=== PATIENT | male | born 1970 | race Caucasian/White ===

== ENCOUNTER 2022-06-29 05:47 | Day surgery (SDC) | payer OTHER ==
[2022-06-21 14:07] VITALS: BMI 31.5
[2022-06-29] MEDS ORDERED: Lidocaine Viscous Sol 2% 15 ml UD Cup ONE (07:29)
[2022-06-29] MEDS ORDERED: PROPOFOL 40 ML ONE (07:29)
== END 2022-06-29 08:30 | disposition home or self-care (01) ==
LOC: CSHSDC 05:47
PROVIDERS: ATTEND Internal Medicine Gastroenterology
PROC: 0DB68ZX Excision of Stomach, Via Natural or Artificial Opening Endoscopic, Diagnostic (ICD-10-PCS; principal; 2022-06-29)
DX: K74.60 Unspecified cirrhosis of liver (principal); I85.10 Secondary esophageal varices without bleeding; E78.5 Hyperlipidemia, unspecified; K31.7 Polyp of stomach and duodenum; E11.9 Type 2 diabetes mellitus without complications; F41.9 Anxiety disorder, unspecified; Z79.899 Other long term (current) drug therapy; Z90.49 Acquired absence of other specified parts of digestive tract; Z91.018 Allergy to other foods
CPT/HCPCS: J2704

== ENCOUNTER 2023-01-13 12:24 | Observation (INO) | payer OTHER ==
[2023-01-13] MEDS ORDERED: Lorazepam 2 MG/ML VIAL ONE (13:38)
[2023-01-13 13:40] LABS: #Basophils 0.1 10x3/uL (0.0-0.2); #Eosinphils 0.1 10x3/uL (0.0-0.5); #Monocytes 0.4 10x3/uL (0.0-1.1); #Neutrophils 3.8 10x3/uL (1.5-8.4); %Eosinophils 2.1 % (0.0-6.0); %Lymphocytes 27.7 % (18.0-47.0); %Monocytes 7.1 % (0.0-10.0); %Neutrophils 61.9 % (40.0-75.0); Hematocrit 44.9 % (38.8-50.0); Hemoglobin 15.8 g/dL (13.5-17.5); Mean Corpuscular HGB CONC 35.2 g/dL (32.0-36.0); Mean Corpuscular Hemoglobin 31.4 pg (27.0-33.0); Mean Corpuscular Volume 89.3 fl (81.2-95.1); Mean Platelet Volume 9.9 fl (7.4-10.4); Platelet Count 129 10x3/uL (150-450); RBC Distribution Width 14.9 % (11.5-14.5); Red Blood Cell (RBC) Count 5.03 10x6/uL (4.32-5.72); White Blood Cell (WBC) Count 6.2 10x3/uL (3.5-10.5)
[2023-01-13] MEDS ORDERED: Lidocaine 2% Viscous Solution 10 ML, Aluminum & Magnesium Hydroxide 30 ML SSW SCH (13:45)
[2023-01-13 13:58] LABS: ALT (SGPT) 25 U/L (8-55); AST (SGOT) 47 U/L (5-34); Albumin 4.5 g/dL (3.5-5.0); Alkaline Phosphatase 97 U/L (40-110); Anion Gap 17 mmol/L (10-20); BUN (Urea Nitrogen) 8 mg/dL (8.9-20.6); Bilirubin, Total 1.3 mg/dL (0.2-1.2); Calc. Creatinine Clearance 0 mL/min (70-130); Calcium 8.8 mg/dL (7.8-10.44); Carbon Dioxide 23 mmol/L (22-29); Chloride 101 mmol/L (98-107); Estimated GFR 90; Globulin 3.4 g/dL (2.4-3.5); Glucose 190 mg/dL (70-105); Lipase 39 U/L (8-78); Potassium 3.4 mmol/L (3.5-5.1); Protein, Total 7.9 g/dL (6.0-8.3); Sodium 138 mmol/L (136-145)
[2023-01-13 14:04] LABS: Troponin I Less than 0.010 ng/mL (< 0.028)
[2023-01-13] MEDS ORDERED: Morphine 4 MG/ML VIAL ONE (15:03)
[2023-01-13 18:37] VITALS: BMI 35.2
[2023-01-13] MEDS ORDERED: Morphine 4 MG/ML VIAL SLOW IVP PRN (18:41)
[2023-01-13] MEDS ORDERED: Hydrocodone-Acetamin 15 ML UDCUP PO PRN (18:47)
[2023-01-13] MEDS ORDERED: Lorazepam 2 MG/ML VIAL SLOW IVP PRN (19:00)
[2023-01-13] MEDS ORDERED: Ondansetron ODT 4 MG TAB PO PRN (19:01)
[2023-01-13] MEDS ORDERED: Electrolyte Replacement Protocol 1 EACH FS SCH (19:15)
[2023-01-13] MEDS ORDERED: Glucagon 1 MG/ML KIT IM PRN (19:16)
[2023-01-13] MEDS ORDERED: Dextrose 50% Abboject 50 ML SYRINGE SLOW IVP PRN (19:16)
[2023-01-13] MEDS ORDERED: HumaLOG 300 UNITS/3 ML VIAL SC PRN (19:16)
[2023-01-13] MEDS ORDERED: Dextrose 5% in Water 1,000 ML IV PRN (19:16)
[2023-01-13 19:50] LABS: Troponin I Less than 0.010 ng/mL (< 0.028)
[2023-01-13] MEDS: Lorazepam 1 MG TAB PO PRN (19:55)
[2023-01-13] MEDS ORDERED: Thiamine HCl 200 MG/2 ML VIAL SLOW IVP SCH (20:00)
[2023-01-13] MEDS ORDERED: Folic Acid 1 MG TAB PO SCH (20:00)
[2023-01-13] MEDS ORDERED: Clopidogrel Bisulfate 75 MG TAB PO SCH (20:00)
[2023-01-13] MEDS ORDERED: Aspirin 81 mg Enteric Coated Tablet PO SCH (20:00)
[2023-01-13] MEDS ORDERED: Multivit, Therapeutic 1 TAB PO SCH (20:00)
[2023-01-13] MEDS: Ranolazine 500 MG ER.TAB PO SCH (20:08)
[2023-01-13] MEDS: risperiDONE 1 MG TAB PO SCH (20:08)
[2023-01-13] MEDS ORDERED: Potassium Chloride 20 MEQ TAB PO SCH (21:00)
[2023-01-14] MEDS: Lorazepam 1 MG TAB PO PRN (01:18)
[2023-01-14 05:41] LABS: Phosphorus 2.6 mg/dL (2.3-4.7)
[2023-01-14 05:42] LABS: Anion Gap 13 mmol/L (10-20); BUN (Urea Nitrogen) 9 mg/dL (8.9-20.6); Calc. Creatinine Clearance 170 mL/min (70-130); Calcium 8.3 mg/dL (7.8-10.44); Carbon Dioxide 24 mmol/L (22-29); Chloride 99 mmol/L (98-107); Estimated GFR 104; Glucose 264 mg/dL (70-105); Magnesium 1.7 mg/dL (1.6-2.6); Potassium 3.3 mmol/L (3.5-5.1); Sodium 133 mmol/L (136-145)
[2023-01-14 06:15] LABS: #Eosinphils 0.1 10x3/uL (0.0-0.5); #Monocytes 0.3 10x3/uL (0.0-1.1); #Neutrophils 1.3 10x3/uL (1.5-8.4); %Basophils 0.8 % (0.0-2.0); %Eosinophils 2.3 % (0.0-6.0); %Lymphocytes 37.6 % (18.0-47.0); %Monocytes 10.6 % (0.0-10.0); %Neutrophils 48.7 % (40.0-75.0); Hematocrit 36.6 % (38.8-50.0); Hemoglobin 12.7 g/dL (13.5-17.5); Mean Corpuscular HGB CONC 34.7 g/dL (32.0-36.0); Mean Corpuscular Hemoglobin 31.4 pg (27.0-33.0); Mean Corpuscular Volume 90.6 fl (81.2-95.1); Mean Platelet Volume 9.7 fl (7.4-10.4); Platelet Count 61 10x3/uL (150-450); RBC Distribution Width 14.8 % (11.5-14.5); Red Blood Cell (RBC) Count 4.04 10x6/uL (4.32-5.72); White Blood Cell (WBC) Count 2.6 10x3/uL (3.5-10.5)
[2023-01-14 06:49] LABS: Platelet Adequacy Comment Platelets Decreased; RBC Morph Comment Within Normal Limits
[2023-01-14] MEDS ORDERED: HumaLOG 300 UNITS/3 ML VIAL SC PRN (07:36)
[2023-01-14] MEDS ORDERED: Empagliflozin 25 MG TAB PO SCH (09:00)
[2023-01-14] MEDS ORDERED: Folic Acid 1 MG TAB PO SCH (09:00)
[2023-01-14] MEDS ORDERED: Thiamine HCl 200 MG/2 ML VIAL SLOW IVP SCH (09:00)
[2023-01-14] MEDS ORDERED: Aspirin 81 mg Enteric Coated Tablet PO SCH (09:00)
[2023-01-14] MEDS ORDERED: Clopidogrel Bisulfate 75 MG TAB PO SCH (09:00)
[2023-01-14] MEDS ORDERED: BuPROPion XL 150 MG ER.TAB PO SCH (09:00)
[2023-01-14] MEDS ORDERED: Multivit, Therapeutic 1 TAB PO SCH (09:00)
[2023-01-14] MEDS ORDERED: Potassium Chloride 20 MEQ TAB PO SCH (09:00)
[2023-01-14] MEDS ORDERED: Magnesium 2 GM/50 ML(in water) 2 GM in Premix 1 BAG IVPB SCH (09:00)
[2023-01-14] MEDS: Ranolazine 500 MG ER.TAB PO SCH (09:13)
[2023-01-14] MEDS: risperiDONE 1 MG TAB PO SCH (09:14)
[2023-01-14 13:00] VITALS: BP 124/66; TEMP 98.3
[2023-01-14] MEDS ORDERED: Lorazepam 1 MG TAB PO PRN (19:01)
[2023-01-15] MEDS ORDERED: Lorazepam 1 MG TAB PO PRN (19:01)
[2023-01-16] MEDS ORDERED: Thiamine 100 MG TAB PO SCH (09:00)
[2023-01-16] MEDS ORDERED: Lorazepam 0.5 MG TAB PO PRN (19:01)
== END 2023-01-14 16:30 | disposition home or self-care (01) ==
LOC: CSHERS 12:24 → CSHTELE 15:27
PROVIDERS: ADMIT Internal Medicine; ATTEND Internal Medicine
DX: R07.9 Chest pain, unspecified (principal); F10.10 Alcohol abuse, uncomplicated; F31.9 Bipolar disorder, unspecified; F43.10 Post-traumatic stress disorder, unspecified; I10 Essential (primary) hypertension; E11.9 Type 2 diabetes mellitus without complications; K74.60 Unspecified cirrhosis of liver; I25.10 Atherosclerotic heart disease of native coronary artery without angina pectoris; Z95.5 Presence of coronary angioplasty implant and graft; Z79.82 Long term (current) use of aspirin; Z79.02 Long term (current) use of antithrombotics/antiplatelets; Z90.49 Acquired absence of other specified parts of digestive tract; Z79.84 Long term (current) use of oral hypoglycemic drugs; Z79.899 Other long term (current) drug therapy; Z91.018 Allergy to other foods
CPT/HCPCS: 36415; 36416; 71045; 80048; 80053; 83690; 83735; 84100; 84484; 85025; 85379; 86850; 86900; 86901; 93005; 96374; 96375; 96376; G0378; J1815; J2060; J2270; J3411; J3475

== ENCOUNTER 2023-03-07 09:25 | Inpatient (IN) | payer OTHER ==
[2023-03-07] MEDS ORDERED: Ondansetron PF 4 MG/2 ML Vial ONE (09:48)
[2023-03-07 10:27] LABS: #Eosinphils 0.1 10x3/uL (0.0-0.5); #Monocytes 0.4 10x3/uL (0.0-1.1); #Neutrophils 2.2 10x3/uL (1.5-8.4); %Basophils 1.1 % (0.0-2.0); %Eosinophils 1.6 % (0.0-6.0); %Lymphocytes 28.1 % (18.0-47.0); %Monocytes 9.5 % (0.0-10.0); %Neutrophils 59.4 % (40.0-75.0); Hematocrit 40.6 % (38.8-50.0); Hemoglobin 14.1 g/dL (13.5-17.5); Mean Corpuscular HGB CONC 34.7 g/dL (32.0-36.0); Mean Corpuscular Hemoglobin 31.3 pg (27.0-33.0); Mean Platelet Volume 9.7 fl (7.4-10.4); Platelet Count 89 10x3/uL (150-450); Red Blood Cell (RBC) Count 4.51 10x6/uL (4.32-5.72); White Blood Cell (WBC) Count 3.8 10x3/uL (3.5-10.5)
[2023-03-07 10:34] LABS: ALT (SGPT) 23 U/L (8-55); AST (SGOT) 45 U/L (5-34); Albumin 3.8 g/dL (3.5-5.0); Alkaline Phosphatase 67 U/L (40-110); Anion Gap 12 mmol/L (10-20); BUN (Urea Nitrogen) 11 mg/dL (8.9-20.6); Calc. Creatinine Clearance 0 mL/min (70-130); Carbon Dioxide 25 mmol/L (22-29); Chloride 102 mmol/L (98-107); Estimated GFR 104; Glucose 157 mg/dL (70-105); Lipase 36 U/L (8-78); Magnesium 2.1 mg/dL (1.6-2.6); Potassium 3.8 mmol/L (3.5-5.1); Protein, Total 6.8 g/dL (6.0-8.3); Sodium 135 mmol/L (136-145)
[2023-03-07] MEDS ORDERED: Ondansetron PF 4 MG/2 ML Vial IVP PRN (12:55)
[2023-03-07] MEDS ORDERED: Ondansetron ODT 4 MG TAB PO PRN ×2 (12:55)
[2023-03-07] MEDS ORDERED: Acetaminophen 325 MG TAB PO PRN (12:55)
[2023-03-07] MEDS ORDERED: Lorazepam 1 MG TAB PO PRN (12:55)
[2023-03-07] MEDS ORDERED: Lorazepam 2 MG/ML VIAL IM PRN (12:55)
[2023-03-07] MEDS ORDERED: Acetaminophen 650 MG Suppository PR PRN (12:55)
[2023-03-07] MEDS ORDERED: Multivitamins, Adult 10 ML, Thiamine HCl 100 MG, Folic Acid 1 MG in Dextrose 5 %-0.45 %... IV SCH (13:00)
[2023-03-07] MEDS ORDERED: Electrolyte Replacement Protocol 1 EACH FS SCH (13:00)
[2023-03-07] MEDS ORDERED: Pantoprazole 40 MG VIAL IVP SCH ×2 (14:00→21:00)
[2023-03-07 16:18] VITALS: BMI 35.4
[2023-03-07] MEDS ORDERED: ADMIXTURE FEE IVPB SCH (20:00)
[2023-03-07] MEDS ORDERED: SODIUM CHLORIDE IVPB SCH (20:00)
[2023-03-07] MEDS ORDERED: THIAMINE HCL IVPB SCH (20:00)
[2023-03-08 04:32] LABS: #Basophils 0.1 10x3/uL (0.0-0.2); #Eosinphils 0.1 10x3/uL (0.0-0.5); #Monocytes 0.5 10x3/uL (0.0-1.1); #Neutrophils 2.4 10x3/uL (1.5-8.4); %Basophils 1.5 % (0.0-2.0); %Eosinophils 1.5 % (0.0-6.0); %Lymphocytes 26.3 % (18.0-47.0); %Monocytes 11.9 % (0.0-10.0); %Neutrophils 58.6 % (40.0-75.0); Hematocrit 40.2 % (38.8-50.0); Hemoglobin 13.6 g/dL (13.5-17.5); Mean Corpuscular HGB CONC 33.8 g/dL (32.0-36.0); Mean Corpuscular Hemoglobin 31.1 pg (27.0-33.0); Mean Corpuscular Volume 91.8 fl (81.2-95.1); Mean Platelet Volume 9.7 fl (7.4-10.4); Platelet Count 93 10x3/uL (150-450); RBC Distribution Width 16.1 % (11.5-14.5); Red Blood Cell (RBC) Count 4.38 10x6/uL (4.32-5.72); White Blood Cell (WBC) Count 4.1 10x3/uL (3.5-10.5)
[2023-03-08 04:41] LABS: Anion Gap 12 mmol/L (10-20); BUN (Urea Nitrogen) 9 mg/dL (8.9-20.6); Calc. Creatinine Clearance 176 mL/min (70-130); Calcium 8.5 mg/dL (7.8-10.44); Carbon Dioxide 24 mmol/L (22-29); Chloride 105 mmol/L (98-107); Estimated GFR 104; Glucose 128 mg/dL (70-105); Sodium 137 mmol/L (136-145)
[2023-03-08 04:52] LABS: Platelet Adequacy Comment Appears Decreased
[2023-03-08] MEDS ORDERED: FLU VACC QS2023-24(6MOS UP)/PF 60 MCG/0.5 ML SYRINGE IM ONE (09:00)
[2023-03-08] MEDS ORDERED: Insulin Regular 300 UNITS/3 ML VIAL SC PRN (09:50)
[2023-03-08] MEDS ORDERED: Dextrose 50% Abboject 50 ML SYRINGE SLOW IVP PRN (09:50)
[2023-03-08] MEDS ORDERED: Dextrose 5% in Water 1,000 ML IV PRN (09:50)
[2023-03-08] MEDS ORDERED: Glucagon 1 MG/ML KIT IM PRN (09:50)
[2023-03-08] MEDS: Thiamine HCl 200 MG/2 ML VIAL SLOW IVP SCH (10:21)
[2023-03-08] MEDS: Pantoprazole 40 MG VIAL IVP SCH ×2 (10:22→21:53)
[2023-03-08] MEDS: Folic Acid 1 MG TAB PO SCH (10:23)
[2023-03-08] MEDS: Multivit, Therapeutic 1 TAB PO SCH (10:23)
[2023-03-08] MEDS: Nicotine 7 MG PATCH TD SCH (10:23)
[2023-03-08] MEDS ORDERED: Polyethylene Glycol 3350 17 GM Packet PO SCH (11:00)
[2023-03-08] MEDS ORDERED: Nitroglycerin 0.4 MG TAB (25 Tab Bottle) SL PRN (18:06)
[2023-03-08] MEDS: Lorazepam 1 MG TAB PO PRN ×2 (19:04→23:04)
[2023-03-08] MEDS: Hydrocortisone 1% Cream 30 GM TUBE TOP SCH (23:04)
[2023-03-09 05:31] LABS: #Basophils 0.1 10x3/uL (0.0-0.2); #Eosinphils 0.1 10x3/uL (0.0-0.5); #Monocytes 0.5 10x3/uL (0.0-1.1); #Neutrophils 2.9 10x3/uL (1.5-8.4); %Eosinophils 1.9 % (0.0-6.0); %Monocytes 11.1 % (0.0-10.0); %Neutrophils 58.6 % (40.0-75.0); Hematocrit 43.2 % (38.8-50.0); Hemoglobin 14.7 g/dL (13.5-17.5); Mean Corpuscular Hemoglobin 30.9 pg (27.0-33.0); Mean Corpuscular Volume 90.8 fl (81.2-95.1); Mean Platelet Volume 9.3 fl (7.4-10.4); Platelet Count 124 10x3/uL (150-450); RBC Distribution Width 15.8 % (11.5-14.5); Red Blood Cell (RBC) Count 4.76 10x6/uL (4.32-5.72); White Blood Cell (WBC) Count 4.9 10x3/uL (3.5-10.5)
[2023-03-09 05:43] LABS: Anion Gap 12 mmol/L (10-20); BUN (Urea Nitrogen) 13 mg/dL (8.9-20.6); Calc. Creatinine Clearance 166 mL/min (70-130); Calcium 9.1 mg/dL (7.8-10.44); Carbon Dioxide 22 mmol/L (22-29); Chloride 106 mmol/L (98-107); Estimated GFR 99; Glucose 150 mg/dL (70-105); Potassium 4.2 mmol/L (3.5-5.1); Sodium 136 mmol/L (136-145)
[2023-03-09] MEDS: Multivit, Therapeutic 1 TAB PO SCH (08:49)
[2023-03-09] MEDS: Thiamine HCl 200 MG/2 ML VIAL SLOW IVP SCH (08:49)
[2023-03-09] MEDS: Pantoprazole 40 MG VIAL IVP SCH ×3 (08:50→22:34)
[2023-03-09] MEDS: Folic Acid 1 MG TAB PO SCH (08:50)
[2023-03-09] MEDS: Polyethylene Glycol 3350 17 GM Packet PO SCH (08:50)
[2023-03-09] MEDS: Lorazepam 1 MG TAB PO PRN (08:51)
[2023-03-09] MEDS: Nicotine 7 MG PATCH TD SCH (11:35)
[2023-03-09] MEDS ORDERED: Lorazepam 1 MG TAB PO PRN (12:55)
[2023-03-09] MEDS ORDERED: Senokot S 8.6-50 MG TAB PO SCH (15:00)
[2023-03-09] MEDS ORDERED: Magnesium Citrate 300 ML BOT PO SCH ×2 (15:00→22:15)
[2023-03-09] MEDS ORDERED: GoLYTELY 4,000 ml Bottle PO SCH (15:00)
[2023-03-09] MEDS ORDERED: Bisacodyl 10 MG SUPP PR SCH (15:00)
[2023-03-09] MEDS ORDERED: Morphine 4 MG/ML VIAL SLOW IVP SCH (20:00)
[2023-03-09] MEDS: Senokot S 8.6-50 MG TAB PO SCH (22:35)
[2023-03-10] MEDS: HYDROcodone/Acetaminophen 5/325 mg Tablet PO PRN ×4 (03:43→21:38)
[2023-03-10 05:59] LABS: #Basophils 0.1 10x3/uL (0.0-0.2); #Eosinphils 0.1 10x3/uL (0.0-0.5); #Monocytes 0.8 10x3/uL (0.0-1.1); #Neutrophils 4.2 10x3/uL (1.5-8.4); %Basophils 1.3 % (0.0-2.0); %Eosinophils 1.2 % (0.0-6.0); %Lymphocytes 23.4 % (18.0-47.0); %Monocytes 11.3 % (0.0-10.0); %Neutrophils 62.5 % (40.0-75.0); Hematocrit 46.2 % (38.8-50.0); Mean Corpuscular HGB CONC 34.6 g/dL (32.0-36.0); Mean Corpuscular Hemoglobin 31.6 pg (27.0-33.0); Mean Corpuscular Volume 91.3 fl (81.2-95.1); Mean Platelet Volume 9.6 fl (7.4-10.4); Platelet Count 153 10x3/uL (150-450); Red Blood Cell (RBC) Count 5.06 10x6/uL (4.32-5.72); White Blood Cell (WBC) Count 6.8 10x3/uL (3.5-10.5)
[2023-03-10 06:11] LABS: Anion Gap 16 mmol/L (10-20); BUN (Urea Nitrogen) 15 mg/dL (8.9-20.6); Calc. Creatinine Clearance 156 mL/min (70-130); Calcium 9.3 mg/dL (7.8-10.44); Carbon Dioxide 21 mmol/L (22-29); Chloride 103 mmol/L (98-107); Estimated GFR 92; Glucose 195 mg/dL (70-105); Potassium 4.2 mmol/L (3.5-5.1); Sodium 136 mmol/L (136-145)
[2023-03-10] MEDS: Thiamine 100 MG TAB PO SCH (10:26)
[2023-03-10] MEDS: Senokot S 8.6-50 MG TAB PO SCH ×2 (10:26→21:39)
[2023-03-10] MEDS: Multivit, Therapeutic 1 TAB PO SCH (10:26)
[2023-03-10] MEDS: Folic Acid 1 MG TAB PO SCH (10:27)
[2023-03-10] MEDS: Hydrocortisone 1% Cream 30 GM TUBE TOP SCH (10:27)
[2023-03-10] MEDS: Thiamine HCl 200 MG/2 ML VIAL SLOW IVP SCH (10:28)
[2023-03-10] MEDS: Polyethylene Glycol 3350 17 GM Packet PO SCH (10:29)
[2023-03-10] MEDS: Nicotine 7 MG PATCH TD SCH (10:55)
[2023-03-10] MEDS ORDERED: Lorazepam 0.5 MG TAB PO PRN (12:55)
[2023-03-10] MEDS ORDERED: Bisacodyl 10 MG SUPP PR SCH (13:30)
[2023-03-10] MEDS: Pantoprazole 40 MG VIAL IVP SCH (21:39)
[2023-03-11] MEDS: HYDROcodone/Acetaminophen 5/325 mg Tablet PO PRN ×2 (04:15→08:23)
[2023-03-11 06:12] LABS: #Basophils 0.1 10x3/uL (0.0-0.2); #Eosinphils 0.1 10x3/uL (0.0-0.5); #Monocytes 0.9 10x3/uL (0.0-1.1); #Neutrophils 2.9 10x3/uL (1.5-8.4); %Basophils 1.6 % (0.0-2.0); %Eosinophils 2.1 % (0.0-6.0); %Lymphocytes 30.5 % (18.0-47.0); %Monocytes 15.6 % (0.0-10.0); %Neutrophils 49.8 % (40.0-75.0); Hemoglobin 15.1 g/dL (13.5-17.5); Mean Corpuscular HGB CONC 34.3 g/dL (32.0-36.0); Mean Corpuscular Hemoglobin 31.9 pg (27.0-33.0); Mean Platelet Volume 9.9 fl (7.4-10.4); Platelet Count 150 10x3/uL (150-450); RBC Distribution Width 15.8 % (11.5-14.5); Red Blood Cell (RBC) Count 4.73 10x6/uL (4.32-5.72); White Blood Cell (WBC) Count 5.7 10x3/uL (3.5-10.5)
[2023-03-11 06:17] LABS: Anion Gap 14 mmol/L (10-20); BUN (Urea Nitrogen) 18 mg/dL (8.9-20.6); Calc. Creatinine Clearance 160 mL/min (70-130); Calcium 9.3 mg/dL (7.8-10.44); Carbon Dioxide 26 mmol/L (22-29); Chloride 104 mmol/L (98-107); Estimated GFR 94; Glucose 180 mg/dL (70-105); Potassium 4.9 mmol/L (3.5-5.1); Sodium 139 mmol/L (136-145)
[2023-03-11] MEDS: Thiamine 100 MG TAB PO SCH (08:20)
[2023-03-11] MEDS: Pantoprazole 40 MG VIAL IVP SCH (08:20)
[2023-03-11] MEDS: Folic Acid 1 MG TAB PO SCH (08:20)
[2023-03-11] MEDS: Senokot S 8.6-50 MG TAB PO SCH (08:20)
[2023-03-11] MEDS: Multivit, Therapeutic 1 TAB PO SCH (08:20)
[2023-03-11] MEDS: Hydrocortisone 1% Cream 30 GM TUBE TOP SCH (08:26)
[2023-03-11 08:40] VITALS: BP 133/88; TEMP 98.2
== END 2023-03-11 10:00 | disposition home or self-care (01) | DRG 897 ==
LOC: CSHERS 09:25 → CSHERHOLD 12:08 → CSHTELE 15:56 → OBSVTOIN 03-09 14:01
PROVIDERS: ADMIT Internal Medicine; ATTEND Internal Medicine
DX: F10.10 Alcohol abuse, uncomplicated (principal); I85.00 Esophageal varices without bleeding; K70.30 Alcoholic cirrhosis of liver without ascites; F10.939 Alcohol use, unspecified with withdrawal, unspecified; F17.223 Nicotine dependence, chewing tobacco, with withdrawal; E11.9 Type 2 diabetes mellitus without complications; E78.5 Hyperlipidemia, unspecified; F41.9 Anxiety disorder, unspecified; F31.9 Bipolar disorder, unspecified; I25.10 Atherosclerotic heart disease of native coronary artery without angina pectoris; F12.13 Cannabis abuse with withdrawal; F20.9 Schizophrenia, unspecified; F43.10 Post-traumatic stress disorder, unspecified; K59.00 Constipation, unspecified; Z71.6 Tobacco abuse counseling; Z91.018 Allergy to other foods; Z79.82 Long term (current) use of aspirin; Z79.899 Other long term (current) drug therapy; Z95.818 Presence of other cardiac implants and grafts; Z90.49 Acquired absence of other specified parts of digestive tract; Z98.890 Other specified postprocedural states
CPT/HCPCS: 36415; 36416; 70450; 74018; 80048; 80053; 83605; 83690; 83735; 84100; 85025; 86850; 86900; 86901; 93005; 93010; 96361; 96374; 96375; 96376; C9113; G0378; J2270; J2405; J3411; J7042; Q0162

== ENCOUNTER 2023-04-15 13:03 | Emergency (ER) | payer OTHER | END 2023-04-15 14:10 | disposition home or self-care (01) | LOC: CSHERS 13:03 | DX: Z48.01 Encounter for change or removal of surgical wound dressing (principal); F17.220 Nicotine dependence, chewing tobacco, uncomplicated; E11.9 Type 2 diabetes mellitus without complications; I10 Essential (primary) hypertension | CPT/HCPCS: 99282 ==

== ENCOUNTER 2024-04-04 17:59 | Inpatient (IN) | payer OTHER ==
[~2024-04-04 17:59] MED LIST: Iopamidol 300 61% 100 ML VIAL FS ONE
[2024-04-04] MEDS ORDERED: cefTRIAXone (ROCEPHIN) 1 GM VIAL ONE (18:38)
[2024-04-04] MEDS ORDERED: Lorazepam 2 MG/ML VIAL ONE ×2 (18:38→19:28)
[2024-04-04] MEDS ORDERED: Pantoprazole 40 MG VIAL ONE (18:39)
[2024-04-04] MEDS ORDERED: Thiamine HCl 200 MG/2 ML VIAL ONE (19:29)
[2024-04-04 20:05] LABS: Hemoglobin 15.3 g/dL (13.5-17.5)
[2024-04-04 20:06] LABS: #Basophils 0.04 10x3/uL (0.0-0.2); #Eosinophils Less than 0.03 10x3/uL (0.0-0.5); #Monocytes 0.37 10x3/uL (0.0-1.1); #Neutrophils 3.03 10x3/uL (1.5-8.4); %Eosinophils 0.5 % (0.0-6.0); %Lymphocytes 14.7 % (18.0-47.0); %Monocytes 9.1 % (0.0-10.0); %Neutrophils 74.5 % (40.0-75.0); Hematocrit 44.5 % (38.8-50.0); Mean Corpuscular HGB CONC 34.4 g/dL (32.0-36.0); Mean Corpuscular Hemoglobin 32.8 pg (27.0-33.0); Mean Corpuscular Volume 95.3 fL (81.2-95.1); Mean Platelet Volume 10.1 fL (7.4-10.4); Platelet Count 63 10x3/uL (150-450); RBC Distribution Width 14.1 % (11.5-14.5); Red Blood Cell (RBC) Count 4.67 10x6/uL (4.32-5.72); White Blood Cell (WBC) Count 4.07 10x3/uL (3.5-10.5)
[2024-04-04 20:07] LABS: INR-International Normal Ratio 1.2; PTT 26.6 sec (22.0-33.0); Prothrombin Time 12.9 sec (9.5-12.1)
[2024-04-04 20:09] LABS: ALT (SGPT) 28 U/L (Less than 45); AST (SGOT) 121 U/L (11-34); Alkaline Phosphatase 73 U/L (40-110); Anion Gap 18 mmol/L (10-20); BUN (Urea Nitrogen) 6 mg/dL (8.4-25.7); Bilirubin, Total 2.3 mg/dL (0.3-1.2); Calc. Creatinine Clearance 0 mL/min (70-130); Calcium 8.5 mg/dL (7.8-10.44); Carbon Dioxide 26 mmol/L (22-29); Chloride 100 mmol/L (98-107); Estimated GFR 108; Globulin 3.6 g/dL (2.4-3.5); Glucose 131 mg/dL (70-105); Lipase 62 U/L (8-78); Magnesium 1.5 mg/dL (1.6-2.6); Protein, Total 7.6 g/dL (6.0-8.3); Sodium 141 mmol/L (136-145)
[2024-04-04 20:14] LABS: Critical Call Chemistry ERS.WJM AT 2013; Potassium 2.6 mmol/L (3.5-5.1)
[2024-04-04] MEDS ORDERED: Ondansetron ODT 4 MG TAB ONE (21:28)
[2024-04-04] MEDS ORDERED: Magnesium 2 GM/50 ML BAG (IN WATER) ONE (21:28)
[2024-04-05] MEDS ORDERED: Lorazepam 2 MG/ML VIAL IM PRN (00:01)
[2024-04-05] MEDS ORDERED: Lorazepam 1 MG TAB PO PRN (00:01)
[2024-04-05] MEDS ORDERED: Electrolyte Replacement Protocol 1 EACH FS PRN (00:15)
[2024-04-05 00:42] LABS: Hematocrit 41.1 % (38.8-50.0); Hemoglobin 14.7 g/dL (13.5-17.5)
[2024-04-05 00:53] LABS: Magnesium 1.8 mg/dL (1.6-2.6); Potassium 2.7 mmol/L (3.5-5.1)
[2024-04-05 01:01] LABS: Troponin I 0.023 ng/mL (< 0.028)
[2024-04-05] MEDS ORDERED: Potassium Bicarbonate/Cit Ac 20 MEQ TAB ONE (01:31)
[2024-04-05] MEDS ORDERED: Lorazepam 2 MG/ML VIAL ONE (01:32)
[2024-04-05 02:48] VITALS: BMI 33.7
[2024-04-05] MEDS: Lorazepam 1 MG TAB PO SCH (02:49)
[2024-04-05] MEDS: Sodium Chloride 0.9% 1,000 ML IV SCH (02:50)
[2024-04-05] MEDS: Thiamine HCl 200 MG/2 ML VIAL SLOW IVP SCH (02:50)
[2024-04-05] MEDS: Pantoprazole 40 MG VIAL IVP SCH ×2 (03:08→08:16)
[2024-04-05] MEDS: Octreotide Acetate 1,250 MCG in Sodium Chloride 0.9% 250 ML 250 ML IVPB SCH (03:09)
[2024-04-05] MEDS: Magnesium 2 GM/50 ML(in water) 2 GM in Premix 1 BAG IVPB SCH (03:28)
[2024-04-05] MEDS: Morphine 4 MG/ML VIAL SLOW IVP SCH (03:28)
[2024-04-05] MEDS: Nitroglycerin 0.4 MG TAB (25 Tab Bottle) SL PRN (03:59)
[2024-04-05] MEDS: Potassium Chloride 20 MEQ in Premix 1 BAG IVPB SCH (04:16)
[2024-04-05] MEDS: Nitroglycerin 2% Ointment 1 INCH/1 GM Packet TOP SCH (04:21)
[2024-04-05 05:04] LABS: Amphetamine Not Detected (NotDetected); Barbiturates Screen Not Detected (NotDetected); Benzodiazepine Screen Detected (NotDetected); Cocaine Metabolite Screen Not Detected (NotDetected); Methadone Not Detected (NotDetected); Methamphetamine Not Detected (NotDetected); Opiate Screen Detected (NotDetected); Oxycodone Screen Not Detected (NotDetected); Phencyclidine (PCP) Not Detected (NotDetected); THC/Cannabinoid Screen Not Detected (NotDetected); Tricyclic Screen Not Detected (NotDetected)
[2024-04-05 05:39] LABS: Platelet Count 56 10x3/uL (150-450)
[2024-04-05 05:40] LABS: #Basophils 0.06 10x3/uL (0.0-0.2); #Eosinophils Less than 0.03 10x3/uL (0.0-0.5); #Monocytes 0.46 10x3/uL (0.0-1.1); %Basophils 1.4 % (0.0-2.0); %Eosinophils 0.5 % (0.0-6.0); %Lymphocytes 20.7 % (18.0-47.0); %Monocytes 10.6 % (0.0-10.0); %Neutrophils 66.6 % (40.0-75.0); Hemoglobin 14.8 g/dL (13.5-17.5); Mean Corpuscular HGB CONC 35.2 g/dL (32.0-36.0); Mean Corpuscular Hemoglobin 33.8 pg (27.0-33.0); Mean Corpuscular Volume 95.9 fL (81.2-95.1); Mean Platelet Volume 9.8 fL (7.4-10.4); RBC Distribution Width 14.1 % (11.5-14.5); Red Blood Cell (RBC) Count 4.38 10x6/uL (4.32-5.72); White Blood Cell (WBC) Count 4.35 10x3/uL (3.5-10.5)
[2024-04-05] MEDS: FLU (Fluarix Triv) TS24-25(6MOS UP)/PF 45 MCG/0.5 ML Syringe IM ONE (07:00)
[2024-04-05] MEDS: Folic Acid 1 MG TAB PO SCH (08:16)
[2024-04-05] MEDS: Morphine 2 MG/ML VIAL SLOW IVP SCH ×2 (08:16→18:47)
[2024-04-05] MEDS: Multivit, Therapeutic 1 TAB PO SCH (08:16)
[2024-04-05] MEDS ORDERED: Glucagon 1 MG/ML KIT IM PRN (11:04)
[2024-04-05] MEDS ORDERED: Dextrose 5% in Water 1,000 ML IV PRN (11:04)
[2024-04-05] MEDS ORDERED: Insulin Lispro 100 UNIT/ML 10 ML VIAL SC PRN (11:04)
[2024-04-05] MEDS ORDERED: Dextrose 50% Abboject 50 ML SYRINGE SLOW IVP PRN (11:04)
[2024-04-05 12:34] LABS: Platelet Count 53 10x3/uL (150-450)
[2024-04-05 12:35] LABS: Hematocrit 40.6 % (38.8-50.0); Hemoglobin 13.8 g/dL (13.5-17.5); Mean Corpuscular Hemoglobin 32.7 pg (27.0-33.0); Mean Corpuscular Volume 96.2 fL (81.2-95.1); Mean Platelet Volume 10.6 fL (7.4-10.4); RBC Distribution Width 13.9 % (11.5-14.5); Red Blood Cell (RBC) Count 4.22 10x6/uL (4.32-5.72); White Blood Cell (WBC) Count 3.06 10x3/uL (3.5-10.5)
[2024-04-05 12:47] LABS: Anion Gap 11 mmol/L (10-20); BUN (Urea Nitrogen) 7 mg/dL (8.4-25.7); Calc. Creatinine Clearance 189 mL/min (70-130); Calcium 8.3 mg/dL (7.8-10.44); Carbon Dioxide 28 mmol/L (22-29); Chloride 98 mmol/L (98-107); Estimated GFR 108; Glucose 209 mg/dL (70-105); Potassium 3.4 mmol/L (3.5-5.1); Sodium 134 mmol/L (136-145)
[2024-04-05] MEDS: Potassium Chloride 20 MEQ TAB PO SCH (13:57)
[2024-04-05] MEDS ORDERED: cefTRIAXone\\ROCEPHIN 1 GM in Sodium Chloride 0.9% 100 ML IVPB SCH (19:00)
[2024-04-05] MEDS: Rifaximin 550 MG TAB PO SCH (20:15)
[2024-04-05] MEDS: Ranolazine ER 500 MG TAB PO SCH (20:15)
[2024-04-05] MEDS: Metoprolol Tartrate 25 MG TAB PO SCH (20:15)
[2024-04-06] MEDS: Lactulose 20 GM (30 mL) UDCUP PO PRN (01:14)
[2024-04-06 04:55] LABS: Anion Gap 15 mmol/L (10-20); BUN (Urea Nitrogen) 5 mg/dL (8.4-25.7); Calc. Creatinine Clearance 210 mL/min (70-130); Calcium 8.9 mg/dL (7.8-10.44); Carbon Dioxide 25 mmol/L (22-29); Chloride 99 mmol/L (98-107); Estimated GFR 112; Glucose 158 mg/dL (70-105); Magnesium 1.6 mg/dL (1.6-2.6); Potassium 3.6 mmol/L (3.5-5.1); Sodium 135 mmol/L (136-145)
[2024-04-06 05:39] LABS: Platelet Count 52 10x3/uL (150-450)
[2024-04-06 05:40] LABS: Hemoglobin 14.3 g/dL (13.5-17.5); Mean Corpuscular HGB CONC 35.8 g/dL (32.0-36.0); Mean Corpuscular Hemoglobin 34.4 pg (27.0-33.0); Mean Corpuscular Volume 96.2 fL (81.2-95.1); Mean Platelet Volume 10.7 fL (7.4-10.4); RBC Distribution Width 13.7 % (11.5-14.5); Red Blood Cell (RBC) Count 4.16 10x6/uL (4.32-5.72); White Blood Cell (WBC) Count 3.27 10x3/uL (3.5-10.5)
[2024-04-06] MEDS: Empagliflozin 25 MG TAB PO SCH (08:24)
[2024-04-06] MEDS: busPIRone HCl 5 MG TAB PO SCH (08:24)
[2024-04-06] MEDS: Magnesium 2 GM/50 ML(in water) 2 GM in Premix 1 BAG IVPB SCH (08:25)
[2024-04-06] MEDS: Lorazepam 1 MG TAB PO PRN (09:52)
[2024-04-06] MEDS: Ondansetron ODT 4 MG TAB PO PRN (17:25)
[2024-04-06] MEDS: Morphine 4 MG/ML VIAL SLOW IVP PRN (17:25)
[2024-04-06] MEDS: Atorvastatin Calcium 40 MG TAB PO SCH (22:07)
[2024-04-06] MEDS: Morphine 2 MG/ML VIAL SLOW IVP PRN (22:10)
[2024-04-07] MEDS: Lorazepam 0.5 MG TAB PO SCH (00:51)
[2024-04-07] MEDS: Lorazepam 1 MG TAB PO PRN (04:12)
[2024-04-07] MEDS ORDERED: Promethazine HCl 12.5 MG in Sodium Chloride 0.9% 50 ML IVPB PRN (05:14)
[2024-04-07 05:18] LABS: Platelet Count 58 10x3/uL (150-450)
[2024-04-07 05:19] LABS: Hematocrit 40.3 % (38.8-50.0); Hemoglobin 13.7 g/dL (13.5-17.5); Mean Corpuscular Hemoglobin 33.2 pg (27.0-33.0); Mean Corpuscular Volume 97.6 fL (81.2-95.1); Mean Platelet Volume 10.1 fL (7.4-10.4); RBC Distribution Width 13.8 % (11.5-14.5); Red Blood Cell (RBC) Count 4.13 10x6/uL (4.32-5.72); White Blood Cell (WBC) Count 4.09 10x3/uL (3.5-10.5)
[2024-04-07 05:28] LABS: Anion Gap 13 mmol/L (10-20); BUN (Urea Nitrogen) 8 mg/dL (8.4-25.7); Calc. Creatinine Clearance 175 mL/min (70-130); Calcium 8.9 mg/dL (7.8-10.44); Carbon Dioxide 26 mmol/L (22-29); Chloride 103 mmol/L (98-107); Estimated GFR 106; Glucose 110 mg/dL (70-105); Magnesium 1.9 mg/dL (1.6-2.6); Potassium 3.8 mmol/L (3.5-5.1); Sodium 138 mmol/L (136-145)
[2024-04-07] MEDS: Magnesium 2 GM/50 ML(in water) 2 GM in Premix 1 BAG IVPB SCH (08:11)
[2024-04-07] MEDS: Aspirin 81 mg Enteric Coated Tablet PO SCH (08:13)
[2024-04-07] MEDS: Clopidogrel Bisulfate 75 MG TAB PO SCH (08:14)
[2024-04-07] MEDS ORDERED: Dicyclomine 10 MG CAP PO PRN (14:48)
[2024-04-07] MEDS: Thiamine 100 MG TAB PO SCH (23:55)
[2024-04-08 05:11] LABS: Anion Gap 12 mmol/L (10-20); BUN (Urea Nitrogen) 11 mg/dL (8.4-25.7); Calc. Creatinine Clearance 194 mL/min (70-130); Calcium 8.8 mg/dL (7.8-10.44); Carbon Dioxide 22 mmol/L (22-29); Chloride 107 mmol/L (98-107); Estimated GFR 109; Glucose 102 mg/dL (70-105); Potassium 3.7 mmol/L (3.5-5.1); Sodium 137 mmol/L (136-145)
[2024-04-08] MEDS: Lorazepam 0.5 MG TAB PO PRN (06:02)
[2024-04-08] MEDS: Magnesium 2 GM/50 ML(in water) 2 GM in Premix 1 BAG IVPB SCH (09:37)
[2024-04-08] MEDS ORDERED: Morphine 2 MG/ML VIAL SLOW IVP PRN (13:31)
[2024-04-08] MEDS: Lidocaine 2% Viscous Solution 10 ML, Aluminum & Magnesium Hydroxide 30 ML SSW SCH (14:39)
[2024-04-08 16:10] LABS: Bilirubin Neg (Negative); Blood, Urine 50 (Negative); Clarity Clear (Clear); Glucose, Urine (Dipstick) >=1000 mg/dL (Negative); Ketone, Urine Negative (Negative); Leukocyte Negative (Negative); Nitrite Negative (Negative); Protein, Urine (Dipstick) Negative (Neg-Trace)
[2024-04-08] MEDS: Morphine 4 MG/ML VIAL SLOW IVP PRN (16:11)
[2024-04-08 16:25] LABS: Bacteria/HPF Rare-Few HPF (None Seen); CAUTI Indications for Culture Dysuria,urgency,freq; Squamous Epithelial 0-3 HPF (0-3); WBC/HPF 0-3 HPF (0-3)
[2024-04-08 16:26] LABS: Urine Culture Reflex No No
[2024-04-08] MEDS: Fluconazole 100 MG TAB PO SCH (22:51)
[2024-04-08] MEDS: Clotrimazole 1% Cream 15 GM TUBE TOP SCH (22:51)
[2024-04-09 05:10] LABS: Anion Gap 14 mmol/L (10-20); BUN (Urea Nitrogen) 11 mg/dL (8.4-25.7); Calc. Creatinine Clearance 205 mL/min (70-130); Calcium 8.8 mg/dL (7.8-10.44); Carbon Dioxide 19 mmol/L (22-29); Chloride 107 mmol/L (98-107); Estimated GFR 111; Glucose 97 mg/dL (70-105); Magnesium 1.9 mg/dL (1.6-2.6); Potassium 3.7 mmol/L (3.5-5.1); Sodium 136 mmol/L (136-145)
[2024-04-09 05:18] LABS: Platelet Count 82 10x3/uL (150-450)
[2024-04-09 05:19] LABS: #Basophils 0.05 10x3/uL (0.0-0.2); #Eosinophils 0.08 10x3/uL (0.0-0.5); #Monocytes 0.67 10x3/uL (0.0-1.1); #Neutrophils 2.88 10x3/uL (1.5-8.4); %Basophils 1.1 % (0.0-2.0); %Eosinophils 1.8 % (0.0-6.0); %Monocytes 14.9 % (0.0-10.0); Mean Corpuscular Volume 97.1 fL (81.2-95.1); Mean Platelet Volume 10.1 fL (7.4-10.4); RBC Distribution Width 13.6 % (11.5-14.5); Red Blood Cell (RBC) Count 4.12 10x6/uL (4.32-5.72)
[2024-04-09] MEDS: Magnesium 2 GM/50 ML(in water) 2 GM in Premix 1 BAG IVPB SCH (08:35)
[2024-04-09] MEDS: Clotrimazole 1% Cream 15 GM TUBE TOP SCH (08:35)
[2024-04-09] MEDS: Lidocaine 2% Viscous Solution 10 ML, Aluminum & Magnesium Hydroxide 30 ML SSW SCH (11:23)
[2024-04-09] MEDS: Sucralfate 1 GM TAB PO SCH (11:32)
[2024-04-09] MEDS: Magnesium Citrate 300 ML BOT PO SCH (11:35)
[2024-04-09] MEDS: Mupirocin 2% Ointment 22 GM Tube TOP SCH (11:37)
[2024-04-09] MEDS: Senokot S 8.6-50 MG TAB PO SCH (21:42)
[2024-04-10 05:24] LABS: Platelet Count 112 10x3/uL (150-450)
[2024-04-10 05:25] LABS: #Basophils 0.05 10x3/uL (0.0-0.2); #Eosinophils 0.09 10x3/uL (0.0-0.5); #Monocytes 0.74 10x3/uL (0.0-1.1); #Neutrophils 3.73 10x3/uL (1.5-8.4); %Basophils 0.9 % (0.0-2.0); %Eosinophils 1.6 % (0.0-6.0); %Lymphocytes 17.5 % (18.0-47.0); %Monocytes 13.2 % (0.0-10.0); %Neutrophils 66.4 % (40.0-75.0); Hematocrit 45.2 % (38.8-50.0); Hemoglobin 15.2 g/dL (13.5-17.5); Mean Corpuscular HGB CONC 33.6 g/dL (32.0-36.0); Mean Corpuscular Hemoglobin 32.8 pg (27.0-33.0); Mean Corpuscular Volume 97.6 fL (81.2-95.1); Mean Platelet Volume 9.9 fL (7.4-10.4); RBC Distribution Width 13.5 % (11.5-14.5); Red Blood Cell (RBC) Count 4.63 10x6/uL (4.32-5.72); White Blood Cell (WBC) Count 5.61 10x3/uL (3.5-10.5)
[2024-04-10 05:36] LABS: ALT (SGPT) 31 U/L (Less than 45); AST (SGOT) 78 U/L (11-34); Albumin 4.2 g/dL (3.1-4.5); Alkaline Phosphatase 76 U/L (40-110); Anion Gap 17 mmol/L (10-20); BUN (Urea Nitrogen) 13 mg/dL (8.4-25.7); Calc. Creatinine Clearance 171 mL/min (70-130); Calcium 9.6 mg/dL (7.8-10.44); Carbon Dioxide 22 mmol/L (22-29); Chloride 102 mmol/L (98-107); Estimated GFR 105; Globulin 3.7 g/dL (2.4-3.5); Glucose 117 mg/dL (70-105); Magnesium 2.3 mg/dL (1.6-2.6); Potassium 4.7 mmol/L (3.5-5.1); Protein, Total 7.9 g/dL (6.0-8.3); Sodium 136 mmol/L (136-145)
[2024-04-10] MEDS ORDERED: oxyCODONE 5 MG TAB PO PRN ×2 (08:30→08:33)
[2024-04-10] MEDS ORDERED: Acetaminophen 325 MG TAB PO PRN ×2 (08:32→08:34)
[2024-04-10] MEDS: Rifaximin 200 MG TAB PO SCH (23:14)
[2024-04-11 05:16] LABS: #Basophils 0.06 10x3/uL (0.0-0.2); #Eosinophils 0.06 10x3/uL (0.0-0.5); #Monocytes 0.57 10x3/uL (0.0-1.1); #Neutrophils 3.95 10x3/uL (1.5-8.4); %Basophils 1.1 % (0.0-2.0); %Eosinophils 1.1 % (0.0-6.0); %Lymphocytes 14.4 % (18.0-47.0); %Monocytes 10.5 % (0.0-10.0); %Neutrophils 72.7 % (40.0-75.0); Hematocrit 44.6 % (38.8-50.0); Mean Corpuscular HGB CONC 33.6 g/dL (32.0-36.0); Mean Corpuscular Hemoglobin 32.7 pg (27.0-33.0); Mean Corpuscular Volume 97.2 fL (81.2-95.1); Mean Platelet Volume 10.5 fL (7.4-10.4); Platelet Count 129 10x3/uL (150-450); RBC Distribution Width 13.5 % (11.5-14.5); Red Blood Cell (RBC) Count 4.59 10x6/uL (4.32-5.72); White Blood Cell (WBC) Count 5.43 10x3/uL (3.5-10.5)
[2024-04-11 05:30] LABS: ALT (SGPT) 32 U/L (Less than 45); AST (SGOT) 71 U/L (11-34); Alkaline Phosphatase 68 U/L (40-110); Anion Gap 15 mmol/L (10-20); BUN (Urea Nitrogen) 12 mg/dL (8.4-25.7); Bilirubin, Total 1.6 mg/dL (0.3-1.2); Calc. Creatinine Clearance 178 mL/min (70-130); Calcium 9.6 mg/dL (7.8-10.44); Carbon Dioxide 21 mmol/L (22-29); Chloride 104 mmol/L (98-107); Estimated GFR 106; Globulin 3.6 g/dL (2.4-3.5); Glucose 143 mg/dL (70-105); Potassium 4.3 mmol/L (3.5-5.1); Protein, Total 7.6 g/dL (6.0-8.3); Sodium 136 mmol/L (136-145)
[2024-04-11] MEDS ORDERED: oxyCODONE 5 MG TAB PO PRN (06:07)
[2024-04-11] MEDS: oxyCODONE 5 MG TAB PO PRN (06:33)
[2024-04-11 12:00] VITALS: BP 120/77; TEMP 98.5
== END 2024-04-11 13:11 | disposition home or self-care (01) | DRG 897 ==
LOC: CSHERS 17:59 → CSHTELE 23:50 → OBSVTOIN 23:50
PROVIDERS: ADMIT Family Medicine; ATTEND Family Medicine
PROC: HZ2ZZZZ Detoxification Services for Substance Abuse Treatment (ICD-10-PCS; principal; 2024-04-04)
DX: F10.239 Alcohol dependence with withdrawal, unspecified (principal); I85.10 Secondary esophageal varices without bleeding; I25.2 Old myocardial infarction; F12.90 Cannabis use, unspecified, uncomplicated; D69.6 Thrombocytopenia, unspecified; E11.65 Type 2 diabetes mellitus with hyperglycemia; F17.220 Nicotine dependence, chewing tobacco, uncomplicated; E87.6 Hypokalemia; E83.42 Hypomagnesemia; K20.90 Esophagitis, unspecified without bleeding; K29.20 Alcoholic gastritis without bleeding; K70.30 Alcoholic cirrhosis of liver without ascites; I25.10 Atherosclerotic heart disease of native coronary artery without angina pectoris; Z96.652 Presence of left artificial knee joint; Z90.49 Acquired absence of other specified parts of digestive tract; Z95.5 Presence of coronary angioplasty implant and graft; Z91.018 Allergy to other foods; Z82.0 Family history of epilepsy and other diseases of the nervous system; Z87.19 Personal history of other diseases of the digestive system; Z79.899 Other long term (current) drug therapy
CPT/HCPCS: 36415; 36416; 70450; 71045; 74177; 80048; 80053; 80306; 81001; 82274; 83690; 83735; 84132; 84443; 84484; 85014; 85018; 85025; 85027; 85610; 85730; 86850; 86900; 86901; 93005; 93010; 94760; 94762; 96361; 96365; 96366; 96375; 96376; J0696; J1815; J2060; J2270; J2272; J2354; J2470; J3411; J3475; J3480; J7030; J7050; Q0162; Q9967